=== PATIENT | male | born 1960 | race Caucasian/White ===

== ENCOUNTER 2018-04-12 20:50 | Emergency (ER) | payer BC ==
[2018-04-12 20:54] VITALS: PULSE 67; TEMP 98.2; BMI 24.6
--- NOTE | 2018-04-12 20:55 | PDOC ---
History of Present Illness - General History Source: Patient Exam Limitations: No Limitations - History of Present Illness Initial Comments: 04/12/18 21:19 The patient is a 58-year-old male with a past medical history significant for high cholesterol (not compliant with medication presents to the emergency department with chest stuffiness for the past 2-3 weeks. The patient presents with 2-3 weeks of intermittent chest stuffy sensation, accompanied by the need to take deep breaths. He denies having chest pain. The patient reports today afternoon he had an episode of the discomfort after lunch while he was sitting down working. The patient states the sensation got worse later in the day when he was driving back from [place]. The patient states about 2-3 weeks back he went to the pharmacy where he had his BP checked which was noted to be in the 140s. The patient reports having an unremarkable stress test. Denies fever, daily medication use, cocaine or drug use. Allergies: NKDA Surgical history: Hernia repair. Social history: No drug or tobacco use reported. Alcohol use reported PCP: None reported <Galilea Hurst - Last Filed: 04/12/18 21:24> <Ron Sprague - Last Filed: 04/13/18 06:56> - General Stated Complaint: "MY CHEST IS STUFFY" Time Seen by Provider: 04/12/18 20:53 Past History <Galilea Hurst - Last Filed: 04/12/18 21:24> - Past Medical History COPD: No Other medical history: NOSE FX - Surgical History Abdominal Surgery: Yes (HERNIA REPAIR) - Suicide/Smoking/Psychosocial Hx Smoking History: Never smoked Have you smoked in the past 12 months: No Information on smoking cessation initiated: No Hx Alcohol Use: (occasional) <Ron Sprague - Last Filed: 04/13/18 06:56> - Past Medical History Allergies/Adverse Reactions: Allergies Allergy/AdvReac Type Severity Reaction Status Date / Time No Known Allergies Allergy Verified 04/12/18 20:51 Home Medications: Ambulatory Orders NK [No Known Home Medication] 04/12/18 Review of Systems - Review of Systems Able to Perform ROS?: Yes Comments:: 04/12/18 21:19 CONSTITUTIONAL: No reported: Fever, Chills, Diaphoresis, Generalized Weakness, Malaise, Loss of Appetite HEENT: No reported: Rhinorrhea, Nasal Congestion, Throat Pain, Throat Swelling, Difficulty Swallowing, Mouth Swelling, Ear Pain, Eye Pain, Visual Changes CARDIOVASCULAR: +Chest stuffiness. No reported: Chest Pain, Syncope, Palpitations, Irregular Heart Rate, Lightheadedness, Peripheral Edema RESPIRATORY: No reported: Cough, Shortness of Breath, SOB with Exertion, Orthopnea, Wheezing , Stridor, Hemoptysis GASTROINTESTINAL: No reported: Abdominal pain, Abdominal Distension, Nausea, Vomiting, Diarrhea, Constipation, Melena, Hematochezia GENITOURINARY: No reported: Dysuria, Frequency, Urgency, Hesitancy, Flank Pain, Genital Pain MUSCULOSKELETAL: No reported: Myalgia, Arthralgia, Joint Swelling, Back pain, Neck Pain SKIN: No reported: Rash, Itching, Pallor HEMEATOLOGIC/IMMUNOLOGIC: No reported: Easy Bleeding, Easy Bruising, Lymphadenopathy, Frequent infections ENDOCRINE: No reported: Unexplained Weight Gain, Unexplained Weight Loss, Heat Intolerance , Cold Intolerance NEUROLOGIC: No reported: Headache, Focal Weakness, Paresthesias, Vertigo, Lightheadedness, Unsteady Gait, Seizure, Mental Status Changes, Incontinence PSYCHIATRIC: No reported: Anxiety, Depression <Galilea Hurst - Last Filed: 04/12/18 21:24> *Physical Exam - Vital Signs Last Vital Signs Temp Pulse Resp BP Pulse Ox 98.2 F 67 18 156/107 H 96 04/12/18 20:50 04/12/18 20:50 04/12/18 20:50 04/12/18 20:50 04/12/18 20:50 - Physical Exam Comments: 04/12/18 21:20 GENERAL: The patient is awake, alert, and fully oriented, Nontoxic - in no acute distress. HEAD: Normocephalic, atraumatic. ENT: Normal voice, Moist mucous membranes. NECK: Normal range of motion, supple LUNGS: Breath sounds equal, clear to auscultation bilaterally. No wheezes, no rhonchi, no rales. HEART: Regular rate and rhythm, without murmur, rub or gallop. ABDOMEN: Soft, nontender, No guarding, no rebound.No CVA tenderness EXTREMITIES: Normal range of motion, no edema. No cyanosis. No erythema, or tenderness. NEUROLOGICAL: Normal speech. SKIN: Warm, Dry, normal turgor. <Galilea Hurst - Last Filed: 04/12/18 21:24> - Vital Signs Last Vital Signs Temp Pulse Resp BP Pulse Ox 98.2 F 67 18 156/107 H 96 04/12/18 20:50 04/12/18 20:50 04/12/18 20:50 04/12/18 20:50 04/12/18 20:50 <Ron Sprague - Last Filed: 04/13/18 06:56> Moderate Sedation - Procedure Monitoring Vital Signs: Procedure Monitoring Vital Signs Temperature 98.2 F 04/12/18 20:50 Pulse Rate 67 04/12/18 20:50 Respiratory Rate 18 04/12/18 20:50 Blood Pressure 156/107 H 04/12/18 20:50 O2 Sat by Pulse Oximetry (%) 96 04/12/18 20:50 <Galilea Hurst - Last Filed: 04/12/18 21:24> - Procedure Monitoring Vital Signs: Procedure Monitoring Vital Signs Temperature 98.2 F 04/12/18 20:50 Pulse Rate 67 04/12/18 20:50 Respiratory Rate 18 04/12/18 20:50 Blood Pressure 156/107 H 04/12/18 20:50 O2 Sat by Pulse Oximetry (%) 96 04/12/18 20:50 <Ron Sprague - Last Filed: 04/13/18 06:56> ED Treatment Course - LABORATORY CBC & Chemistry Diagram: 04/12/18 21:14 04/12/18 21:14 <Galilea Hurst - Last Filed: 04/12/18 21:24> - LABORATORY CBC & Chemistry Diagram: 04/12/18 21:14 04/12/18 21:14 <Ron Sprague - Last Filed: 04/13/18 06:56> Medical Decision Making - Medical Decision Making 04/12/18 21:24 EKG: Sinus rhythm 64 Normal axis Normal interval No ischemic findings. <Galilea Hurst - Last Filed: 04/12/18 21:24> - Medical Decision Making 04/13/18 06:54 cxr--nl, as read by me, referred to radiology for definitive read nonspecific chest "stuffiness" accompanird by fatigue labs, cxr, ekg unremarkable no pain or dyspnea per se encouraged to fu with PCP to continue de la cruz repeat BP 140/89 <Ron Sprague - Last Filed: 04/13/18 06:56> *DC/Admit/Observation/Transfer - Attestations Scribe Attestion: 04/12/18 21:21 Documentation prepared by Galilea Hurst, acting as medical technologist prn for Ron Sprague MD. <Galilea Hurst - Last Filed: 04/12/18 21:24> <Ron Sprague - Last Filed: 04/13/18 06:56> Diagnosis at time of Disposition: Elevated blood pressure reading - Discharge Dispostion Disposition: HOME Condition at time of disposition: Stable - Patient Instructions Additional Instructions: Please follow up with your doctor for continuing care. Reduce alcohol consumption by 50% Please have your doctor recheck your blood pressure and your liver tests in one month. Ok to take Benadryl (diphenhydramine) 50mg to help sleep
[2018-04-12 21:31] LABS: BASO % 1.5 % (0-2.0); EOS % 3.8 % (0-4.5); HEMATOCRIT 44.4 % (35.4-49); HEMOGLOBIN 14.9 GM/dl (11.7-16.9); LYMPH % 34.1 % (8-40); MCH 33.3 pg (25.7-33.7); MCHC 33.7 g/dl (32.0-35.9); MEAN CELL VOLUME 98.9 fl (80-96); MEAN PLT VOLUME 8.8 fl (7.5-11.1); MONO % 10.3 % (3.8-10.2); NEUT % 50.3 % (42.8-82.8); PLATELET COUNT 235 K/MM3 (134-434); RBC 4.49 M/mm3 (4.00-5.60); RDW 12.5 % (11.9-15.9); WHITE BLOOD COUNT 6.2 K/mm3 (4.0-10.8)
[2018-04-12 21:39] LABS: ALBUMIN 4.5 g/dl (3.5-5.0); ALK PHOS 52 U/L (32-92); ANION GAP 10 MMOL/L (8-16); BILIRUBIN,TOTAL 0.7 mg/dl (0.2-1.0); BLOOD UREA NITROGEN 12 mg/dl (7-18); CALCIUM 9.4 mg/dl (8.4-10.2); CHLORIDE 102 mmol/L (98-107); CO2 25 mmol/L (22-28); CREATININE 0.8 mg/dl (0.6-1.3); GLUCOSE,RANDOM 89 mg/dl (74-106); POTASSIUM 4.2 mmol/L (3.5-5.1); SGOT/AST 51 U/L (10-42); SGPT/ALT 61 U/L (10-40); SODIUM 137 mmol/L (136-145); TOT PROT 7.5 g/dl (6.4-8.3)
[2018-04-12 22:15] VITALS: BP 139/89
--- NOTE | 2018-04-14 19:39 | EKG ---
Test Reason : Blood Pressure : / mmHG Vent. Rate : 064 BPM Atrial Rate : 064 BPM P-R Int : 150 ms QRS Dur : 086 ms QT Int : 420 ms P-R-T Axes : 024 028 028 degrees QTc Int : 433 ms NORMAL SINUS RHYTHM NORMAL ECG NO PREVIOUS ECGS AVAILABLE Confirmed by GARRY ADORNO MD ([id number]) on 04/14/2018 7:39:23 PM Referred By: MD LAWRENCE Confirmed By:GARRY ADORNO MD
== END 2018-04-12 22:25 | disposition home or self-care (01) ==
LOC: FER 20:50
DX: R03.0 Elevated blood-pressure reading, without diagnosis of hypertension (principal); E78.00 Pure hypercholesterolemia, unspecified
CPT/HCPCS: 36415; 71046-TC-FY; 80053; 84484; 85025; 93005; 99284-25